=== PATIENT | female | born 1990 | race Caucasian/White ===

== ENCOUNTER 2023-04-29 12:19 | Emergency (ER) | payer OTHER ==
[~2023-04-29] VITALS: Ht 165.1 cm; Wt 91.0 kg
[2023-04-29 12:23] VITALS: O2SAT 98
[2023-04-29 14:09] VITALS: BP 128/98; PULSE 113; RESP 16; TEMP 98
== END 2023-04-29 14:12 | disposition home or self-care (01) ==
LOC: ER 12:19
DX: F15.10 Other stimulant abuse, uncomplicated (principal)
CPT/HCPCS: 99283